=== PATIENT | female | born 1975 | race American Indian/Alaskan Native ===

== ENCOUNTER 2017-03-18 17:31 | Inpatient (IN) | payer OTHER ==
[2017-03-18] MEDS ORDERED: TYLENOL ONE (19:50)
[2017-03-18] MEDS ORDERED: TYLENOL PO ONE (20:05)
[2017-03-18 20:22] LABS: Hematocrit 39.8 % (30.3-42.9); Hemoglobin 13.4 gm/dl (10.1-14.3); Mean Corpuscular HGB Conc 34 % (30-34); Mean Corpuscular Hemoglobin 29 pg (28-32); Mean Corpuscular Volume 85 fl (79-97); Platelet Count 169 K/mm3 (140-440); Red Blood Count 4.66 M/mm3 (3.65-5.03); Red Cell Distribution Width 12.9 % (13.2-15.2); White Blood Count 4.6 K/mm3 (4.5-11.0)
[2017-03-18 20:43] LABS: Anion Gap 19 mmol/L; BUN/Creatinine Ratio 13.75; Blood Urea Nitrogen 11 mg/dL (7-17); Carbon Dioxide 25 mmol/L (22-30); Chloride 97.8 mmol/L (98-107); Glucose 122 mg/dL (65-100); Potassium 3.8 mmol/L (3.6-5.0); Sodium 138 mmol/L (137-145)
[2017-03-18 20:54] LABS: Basophils % (Manual) 0 % (0.0-1.8); Blastocytes % (Manual) 0 %; RBC Morphology Normal
[2017-03-18 20:55] LABS: Diff Status Complete
[2017-03-18 22:36] LABS: Bilirubin,Urine NEG (Negative); Blood,Urine LG (Negative); Ketones,Urine NEG (Negative); Leukocyte Esterase,Urine NEG (Negative); Mucus,Urine FEW /HPF; Nitrite,Urine NEG (Negative); Urobilinogen,Urine < 2.0 mg/dL (<2.0)
[2017-03-18 22:38] LABS: WBC,Urine < 1.0 /HPF (0.0-6.0)
[2017-03-19] MEDS ORDERED: TESSALON PERLES PO ONE (02:17)
[2017-03-19] MEDS ORDERED: MOTRIN PO ONE (02:17)
[2017-03-19] MEDS ORDERED: LEVAQUIN PO ONE (03:18)
[2017-03-19] MEDS ORDERED: MORPHINE IV ONE (03:19)
[2017-03-19] MEDS ORDERED: BABY ASPIRIN PO ONE (03:51)
--- NOTE | 2017-03-19 03:51 | Emergency Department Report ---
HPI - General Chief Complaint: Chest Pain Time Seen by Provider: 03/19/17 02:18 - HPI HPI: The patient is a 41-year-old female who presents for evaluation of chest pain and cough. The patient reports chest pain since 11 AM this morning, greater than 12 hours prior to my evaluation, pressure-like and squeezing in quality, 7/ 10 in severity, exacerbated with coughing. She reports associated productive cough of yellow sputum, and ill-feeling, also for the past one day. The patient denies syncope, hemoptysis, unilateral leg swelling, oral contraceptive use, recent immobilization or surgery, history of DVT or PE, recent cancer. ED Past Medical Hx - Past Medical History Previous Medical History?: Yes Hx Hypertension: Yes Hx Asthma: Yes - Surgical History Past Surgical History?: Yes Additional Surgical History: c -secX3, hysterectomy, appendectomy - Social History Smoking Status: Current Every Day Smoker Substance Use Type: None - Medications Home Medications: Home Medications Medication Instructions Recorded Confirmed Last Taken Type amLODIPine [Norvasc] 5 mg PO DAILY 03/19/17 03/19/17 03/18/17 History Azithromycin [Zithromax] 250 mg PO DAILY #5 tablet 03/20/17 Unknown Rx Benzonatate [Tessalon Perles] 100 mg PO TID PRN #20 capsule 03/20/17 Unknown Rx ED Review of Systems ROS: Stated complaint: CHEST PAIN/COUGH/BODYACHES Other details as noted in HPI Constitutional: denies: fever ENT: denies: throat or neck pain Respiratory: reports cough, shortness of breath Cardiovascular: reports chest pain Endocrine: denies unexplained weight loss or gain Gastrointestinal: denies: abdominal pain, nausea Genitourinary: denies: dysuria Musculoskeletal: denies: leg swelling Skin: denies: rash Neurological: denies: headache Hematological/Lymphatic: denies: easy bleeding or easy bruising Psych: denies sadness or hopelessness Physical Exam - Physical Exam Vital Signs: Vital Signs 03/18/17 03/18/17 03/18/17 19:56 20:07 23:47 Temperature 102.5 F H 99.7 F H Pulse Rate 109 H 94 H Respiratory 18 18 Rate Blood Pressure 154/100 135/89 Blood Pressure [Right] O2 Sat by Pulse 100 96 Oximetry 03/19/17 03/19/17 03/19/17 02:47 03:27 03:30 Temperature 100.3 F H Pulse Rate 90 90 91 H Respiratory 21 22 18 Rate Blood Pressure 117/78 Blood Pressure 119/75 [Right] O2 Sat by Pulse 96 96 96 Oximetry 03/19/17 03:38 Temperature Pulse Rate 94 H Respiratory 14 Rate Blood Pressure Blood Pressure 117/78 [Right] O2 Sat by Pulse 96 Oximetry Physical Exam: General: well-nourished, well-developed, no acute distress Head: Normocephalic, atraumatic Eyes: normal sclera ENT: Mucous membranes are pink and moist Neck: trachea midline, neck supple, No neck stiffness, no cervical adenopathy Respiratory: Mildly diminished breath sounds and wheezing present Cardio: S1 and S2 present, no murmurs, rubs, gallops, capillary refill is brisk Abdomen: Normoactive bowel sounds, soft abdomen, no rigidity, no guarding or rebound tenderness Chest WALL/Back: No tenderness to palpation of the chest wall, no CVA tenderness with percussion Musc: No pitting edema Skin: No rash Neuro: no facial drooping, normal speech Psych: Normal affect ED Course Vital Signs 03/18/17 03/18/17 03/18/17 19:56 20:07 23:47 Temperature 102.5 F H 99.7 F H Pulse Rate 109 H 94 H Respiratory 18 18 Rate Blood Pressure 154/100 135/89 Blood Pressure [Right] O2 Sat by Pulse 100 96 Oximetry 03/19/17 03/19/17 03/19/17 02:47 03:27 03:30 Temperature 100.3 F H Pulse Rate 90 90 91 H Respiratory 21 22 18 Rate Blood Pressure 117/78 Blood Pressure 119/75 [Right] O2 Sat by Pulse 96 96 96 Oximetry 03/19/17 03:38 Temperature Pulse Rate 94 H Respiratory 14 Rate Blood Pressure Blood Pressure 117/78 [Right] O2 Sat by Pulse 96 Oximetry ED Medical Decision Making - Lab Data Result diagrams: 03/20/17 05:52 03/20/17 05:52 - Medical Decision Making The patient was seen and examined by myself. The patient is placed on a quality assurance monitor final and continuous pulse ox. On initial evaluation, the patient was found to be in no distress. Evaluation orders were placed. EKG was negative for findings suggestive of acute cardiac infarct. The patient is given Tessalon Perles for their cough, and Tylenol and Motrin for his elevated temperature and pain. Lab results were not concerning. Chest x-ray exhibits infiltrate consistent with pneumonia. The patient is given IV morphine for his pain and IV Zosyn and by mouth Levaquin for treatment of pneumonia. As the patient presented with fever 102, tachycardia greater than 90, and was found to have source of infection, the patient meets sepsis criteria. The on-call hospitalist service was contacted. They agreed to admit the patient for further treatment and close monitoring. The ED admit order was placed. The patient was admitted in guarded condition. Critical care attestation.: If time is entered above; I have spent that time in minutes in the direct care of this critically ill patient, excluding procedure time. ED Disposition Clinical Impression: Acute chest pain Pneumonia Qualifiers: Pneumonia type: due to unspecified organism Laterality: unspecified laterality Lung location: unspecified part of lung Qualified Code(s): J18.9 - Pneumonia, unspecified organism Sepsis Qualifiers: Sepsis type: sepsis due to unspecified organism Qualified Code(s): A41.9 - Sepsis, unspecified organism Disposition: OP ADMITTED IP TO THIS HOSP Is pt being admited?: Yes Does the pt Need Aspirin: Yes Condition: Serious Time of Disposition: 03:50
[2017-03-19] MEDS ORDERED: BENADRYL ONE (04:03)
[2017-03-19] MEDS ORDERED: BENADRYL IV ONE (04:11)
--- NOTE | 2017-03-19 06:01 | History and Physical Report ---
History of Present Illness Date of examination: 03/19/17 History of present illness: 41-year-old woman with a history of hypertension, smoker comes emergency room with complaints of pain in the epigastric area. Described as a dull pain, intermittent in nature, intensity 5/10, no radiation, she cannot identify exacerbating or relieving factors. Also complaining of nonproductive cough, fever chills. Plan shortness of breath, nausea, no diaphoresis or palpitation. Patient has stress test in November which was negative Patient denies abdominal pain, hematochezia, dysuria, frequency, focal weakness , dysarthria, fever chills, polydipsia polyuria, hot or cold intolerance, easy bruisability, or rash or bleeding from mucosal membrane, rhinorrhea, epistaxis, earache, tinnitus, blurry vision, eye discharge, anxiety, depression. Other review of systems negative PAST SURGICAL HISTORY: None SOCIAL HISTORY: Smoker, no alcohol or drugs FAMILY HISTORY: Hypertension Medications and Allergies Allergies Allergy/AdvReac Type Severity Reaction Status Date / Time morphine AdvReac Hives Verified 03/19/17 04:12 Active Meds: Active Medications Piperacillin Sod/Tazobactam Sod (Zosyn/Ns 4.5gm/100ml) 4.5 gm in 100 mls @ 200 mls/hr IV Q8HR DUONG PRN Reason: Protocol Exam - Physical Exam Narrative exam: Gen. appearance: Patient lying in bed, no apparent distress HEENT: Normocephalic, atraumatic, pupils equally round and reactive to light, extraocular movement intact, and no sclericterus,. No JVD or thyromegaly or nodule,neck supple, no carotid bruit ,mucous membranes moist, no exudate or erythema Heart: S1, S2, regular rate and rhythm Lungs: Crackles bilaterally, breathing comfortable Abdomen: Positive bowel sounds, nontender, nondistended, no organomegaly Extremity: No edema, cyanosis, clubbing Skin: No rash, nodules, warm, dry Neuro: Oriented 3, cranial nerves II-12 intact, speech is fluent, motor and sensory intact - Constitutional Vitals: Temp Pulse Resp BP Pulse Ox 100.3 F H 89 19 119/82 88 03/19/17 02:47 03/19/17 04:51 03/19/17 04:51 03/19/17 04:51 03/19/17 04:51 Results - Labs CBC & Chem 7: 03/18/17 20:05 03/18/17 20:05 Labs: Abnormal lab results 03/18/17 03/18/17 03/19/17 Range/Units 20:05 20:05 03:47 RDW 12.9 L (13.2-15.2) % Seg Neuts % (Manual) 76.0 H (40.0-70.0) % Lymphocytes % (Manual) 13.0 L (13.4-35.0) % Monocytes % (Manual) 10.0 H (0.0-7.3) % Lymphocytes # (Manual) 0.6 L (1.2-5.4) K/mm3 Chloride 97.8 L (98-107) mmol/L Glucose 122 H (65-100) mg/dL C-Reactive Protein 2.90 H (0.00-1.30) mg/dL - Imaging and Cardiology EKG: image reviewed Chest x-ray: image reviewed Assessment and Plan Community-acquired pneumonia Chest pain probably secondary to #1 Hypertension Admits medicine Start IV Levaquin Check cardiac enzymes,. Percocet, DVT prophylaxis
[2017-03-19] MEDS ORDERED: DULCOLAX PR PRN (06:02)
[2017-03-19] MEDS ORDERED: MILK OF MAGNESIA PO PRN (06:02)
[2017-03-19] MEDS ORDERED: ZOFRAN IV PRN (06:02)
[2017-03-19] MEDS: ZOSYN/NS 4.5GM/100ML 4.5 GM/100 ML VIAL IV SCH ×3 (06:09→22:13)
--- NOTE | 2017-03-19 06:39 | Admit Criteria Form ---
Admission Criteria Documentation: PNEUMONIA, COMMUNITY ACQUIRED Clinical Indications for Admission to Inpatient Care ( Place 'X' for any and all applicable criteria): Admission is indicated for ANY ONE of the following (1)(2)(3): [ X]I. Hypoxemia indicated by ANY ONE of the following: [ X]a) Oxygen saturation less than 90% while breathing room air [ ]b) PO2 less than 60 mm Hg (8.0 kPa) while breathing room air [ ]c) Chronic lung disease with significant deterioration from baseline oxygenation [ ]II. Appropriate diagnostic testing and treatment unavailable in outpatient or recovery facility (eg,testing or infection control measures unavailable(10) [ ]III. Moderate-risk or high-risk category patients (Pneumonia Severity Index (PSI) class IV or V, or CURB-65 score of 3 or greater). [ ]IV. Outpatient treatment failure as indicated by ANY ONE of the following(9) : [ ]a) Failure to respond to antibiotic (eg, resistant organism) [ ]b) Clinically significant adverse effects from medication (eg, vomiting) [ ]c) Complications of pneumonia (eg, empyema, bacteremia) [ ]d) Significant worsening of comorbid cond necessitating inpatient care (eg, chronic heart failure) [ ]V. Intermediate-risk category patients (eg, PSI class III or CURB-65 score 2) who do not improve with initial therapy and observation. [ ]. Immunocompromised patients (eg, AIDS, chronic steroid use) at moderate or high risk based on clinical evaluation. [ ]VII. Complicated pleural effusions (eg, exudative, loculated) [ ]VIII.Hemodynamic instability [ ] IX. Altered mental status that is severe or persistent. [ ]X. Dehydration that is severe or persistent. [ ]XI. Bacteremia [ ]XII. Respiratory finding (eg. tachypnea) that do not respond to outpatient or observation care treatment Extended stay beyond goal length of stay may be needed for (20) [ ]a) Unclear diagnosis [ ]b) Pleural disease [ ]c) Severe pneumonia or treatment failure (25 [ ]d) Respiratory failure (anticipate invasive or noninvasive ventilatory support) [ ]e) Abnormal serum electrolytes (serum Na concentration less than 135 mEq/L (mmol/L) (32)(33) [ ]f) Clinically significant comorbid illness (eg, heart failure, atrial fibrillation with rapid heart rate, alcohol withdrawal, renal insufficiency)(34)(35) [ ]g) Comorbid acute exacerbation of COPD(36) [ ]h) Concomitant diagnosis of malignancy that may be associated with malnutrition, immunologic impairment, or bronchial obstruction. [ ]i) Concomitant altered mental status [ ]j) Culture-identified Gram-negative or antibiotic-resistant organism (eg, Pseudomonas, methicillin-resistant Staphylococcus aureus)(30) [ ]k) Healthcare-associated pneumonia The original [employer] content created by [employer] has been revised. The portions of the content which have been revised are identified through the use of italic text or in bold, and [facility] has neither reviewed nor approved the modified material. All other unmodified content is copyright [facility]. Please see references footnoted in the original [facility] [employer] edition 2016 Admission Criteria Met: Yes
--- NOTE | 2017-03-19 08:12 | XRay Report ---
AP CHEST : 03/18/17 17:31:00 CLINICAL: Chest pain. COMPARISON:None FINDINGS: Normal heart and pulmonary vessels. The lungs are normally expanded and clear. The bones and soft tissues are unremarkable. IMPRESSION: Normal chest.
[2017-03-19 08:32] LABS: Creatine Kinase MB < 1.0 ng/mL (0.0-4.0)
[2017-03-19 08:33] LABS: Creatine Kinase 123 units/L (30-135)
[2017-03-19] MEDS: PERCOCET 5/325 PO PRN ×2 (13:22→19:57)
[2017-03-19] MEDS: LEVAQUIN 750MG/150ML 750 MG/150 ML BAG IV SCH (13:24)
--- NOTE | 2017-03-19 14:20 | Event Note ---
Date: 03/19/17 Patient presents with fever, cough, epigastric pain. She was seen and examined. Continue current management.
[2017-03-19] MEDS: TYLENOL PO PRN (16:39)
[2017-03-19 17:15] LABS: Creatine Kinase MB 1.1 ng/mL (0.0-4.0)
[2017-03-19 17:17] LABS: Creatine Kinase 123 units/L (30-135)
[2017-03-19] MEDS: TESSALON PERLES PO SCH (19:57)
[2017-03-19] MEDS ORDERED: PROVENTIL IH PRN (21:19)
[2017-03-20] MEDS ORDERED: ROBITUSSIN DM PO ONE (01:00)
[2017-03-20] MEDS: TYLENOL PO PRN (05:30)
[2017-03-20] MEDS: ZOSYN/NS 4.5GM/100ML 4.5 GM/100 ML VIAL IV SCH (05:31)
[2017-03-20 06:43] LABS: Basophils % (Auto) 0.5 % (0.0-1.8); Eosinophils % (Auto) 0.2 % (0.0-4.3); Hematocrit 38.3 % (30.3-42.9); Hemoglobin 12.4 gm/dl (10.1-14.3); Mean Corpuscular HGB Conc 32 % (30-34); Mean Corpuscular Hemoglobin 28 pg (28-32); Mean Corpuscular Volume 86 fl (79-97); Platelet Count 142 K/mm3 (140-440); Red Blood Count 4.46 M/mm3 (3.65-5.03); Red Cell Distribution Width 12.9 % (13.2-15.2); White Blood Count 3.2 K/mm3 (4.5-11.0)
[2017-03-20 06:52] LABS: Anion Gap 18 mmol/L; BUN/Creatinine Ratio 14.28; Blood Urea Nitrogen 10 mg/dL (7-17); Calcium 8.5 mg/dL (8.4-10.2); Carbon Dioxide 25 mmol/L (22-30); Chloride 101.2 mmol/L (98-107); Glucose 160 mg/dL (65-100); Potassium 3.6 mmol/L (3.6-5.0); Sodium 141 mmol/L (137-145)
--- NOTE | 2017-03-20 08:57 | XRay Report ---
ROUTINE CHEST, TWO VIEWS: History: Fever and cough. PA and lateral views demonstrate the heart and mediastinal contour to be of normal size and shape. The lungs are clear and fully expanded and the soft tissues and bony structures are normal. IMPRESSION: Normal study.
[2017-03-20] MEDS: LEVAQUIN 750MG/150ML 750 MG/150 ML BAG IV SCH (09:17)
[2017-03-20] MEDS: TESSALON PERLES PO SCH (09:18)
[2017-03-20] MEDS: LOVENOX SUB-Q SCH ×2 (09:18)
[2017-03-20] MEDS: PERCOCET 5/325 PO PRN (09:55)
--- NOTE | 2017-03-20 10:24 | Discharge Summary ---
Providers - Providers Date of Admission: 03/19/17 05:22 Date of discharge: 03/20/17 Attending physician: ANDRIA ROQUE Primary care physician: ADRIANA VERGARA MD Hospitalization Condition: Fair Disposition: DISCHARGED TO HOME OR SELFCARE - Discharge Diagnoses (1) Fever Status: Acute Qualifiers: Fever type: F Encounter type: E (2) Bronchitis Status: Acute (3) Febrile respiratory illness Status: Acute Exam - Constitutional Vitals: Temp Pulse Resp BP Pulse Ox 99.1 F 84 18 117/68 97 03/20/17 08:42 03/20/17 09:00 03/20/17 08:42 03/20/17 08:42 03/20/17 08:42 Plan Activity: no restrictions Diet: low fat, low cholesterol, low salt Additional Instructions: 1.Follow up with primary care physician or [facility] in 1 week. Follow up with: PRIMARY CARE, [Primary Care Provider] - 3-5 Days Prescriptions: Azithromycin [Zithromax] 250 mg PO DAILY #5 tablet Benzonatate [Tessalon Perles] 100 mg PO TID PRN #20 capsule PRN Reason: Cough
[2017-03-20 12:28] VITALS: BP 117/68
== END 2017-03-20 12:42 | disposition home or self-care (01) | DRG 202 ==
LOC: ED 17:31 → 4A 03-19 05:22
PROVIDERS: ADMIT Internal Medicine; ATTEND Internal Medicine
DX: J20.9 Acute bronchitis, unspecified (principal); J18.9 Pneumonia, unspecified organism; I10 Essential (primary) hypertension; J45.909 Unspecified asthma, uncomplicated; F17.210 Nicotine dependence, cigarettes, uncomplicated; R50.9 Fever, unspecified; Z90.49 Acquired absence of other specified parts of digestive tract; Z90.710 Acquired absence of both cervix and uterus; Z88.6 Allergy status to analgesic agent; Z82.49 Family history of ischemic heart disease and other diseases of the circulatory system
CPT/HCPCS: 36415; 71010; 71020; 80048; 81001; 82140; 82550; 82553; 84484; 85007; 85025; 86140; 87040; 93005; 93010; 94640; 96374; 96375; J1200; J1650; J1956; J2270; J2543